=== PATIENT | female | born 1970 | race Caucasian/White ===

== ENCOUNTER 2017-06-12 19:13 | Inpatient (IN) ==
[2017-06-12] MEDS ORDERED: SODIUM CHLORIDE 0.9% 1,000 ML IV STA (23:31)
[2017-06-12] MEDS ORDERED: METOCLOPRAMIDE 10 MG/2 ML VIAL IV STA (23:32)
[2017-06-12] MEDS ORDERED: METOCLOPRAMIDE 10 MG/2 ML VIAL ONE (23:43)
[2017-06-12 23:50] LABS: Basophils % 0.4 % (0.0-0.8); Eosinophils # 0.2 10*3/uL (0.0-0.87); Eosinophils % 2.2 % (0.00-10.9); Hematocrit 43.6 VOL% (35.7-47.0); Hemoglobin 15.2 GM/DL (12.0-16.0); Immature Granulocytes % 0.3 %; Immature Granulocytes Absolute 0.03 #; Lymphocytes # 3.8 10*3/uL (1.4-4.0); Lymphocytes % 40.1 % (21.3-54.2); Mean Corpuscular HGB Conc 34.9 GM/DL (32-36); Mean Corpuscular Hemoglobin 34 PG (27-34); Mean Corpuscular Volume 97.3 FL (87-102); Mean Platelet Volume 10.6 FL (9.6-12.0); Monocytes # 0.6 10*3/uL (0.11-0.8); Monocytes % 6.7 % (1.7-12.7); Neutrophils # 4.8 10*3/uL (1.4-7.4); Neutrophils % 50.3 % (38.7-73.9); Platelet Count 234 T/CUMM (130-400); Red Blood Count 4.48 MC/CUMM (3.8-5.5); Red Cell Distribution Width 12.4 % (9.3-17.3); White Blood Count 9.6 T/CUMM (4-12)
[2017-06-12 23:55] LABS: Amorphous Crystals,Urine Many /HPF (Few); Apearance,Urine CLOUDY (Clear); Bacteria,Urine Occasional /HPF (Few); Bilirubin,Urine Negative (Negative); Blood, Urine Negative (Negative); Glucose,Urine (UA) Negative (Negative); Ketones,Urine Negative (Negative); Nitrite,Urine Negative (Negative); Protein,Urine Negative; Squamous Epithelial Cell,Urine Occasional /HPF (0-10); Urine Color Yellow (Yellow); Urine Specific Gravity 1.012 (1.001-1.035); Urine Urobilinogen < 2.0 EU/DL (0.2-1.0)
[2017-06-12 23:56] LABS: Alanine Aminotransferase 23 U/L (13-56); Albumin 3.5 G/DL (3.4-5.0); Alkaline Phosphatase 75 U/L (45-117); Amylase 49 U/L (25-115); Aspartate Amino Transferase 12 U/L (0-37); Blood Urea Nitrogen 10 MG/DL (7-18); Calcium 8.6 MG/DL (8.5-10.1); Glucose 108 MG/DL (74-106); Osmolality,Calculated 278.4 MOS/KG (273-304); Potassium 3.6 MMOL/L (3.5-5.1); Sodium 140 MMOL/L (136-145)
[2017-06-12 23:57] LABS: Partial Thromboplastin Time 33.4 SECS (0-40)
[2017-06-13 00:02] LABS: Barbiturates Screen,Urine Negative (Negative); Benzodiazepines Screen,Urine Negative (Negative); Cannabinoid Screen,Urine Negative (Negative); Opiate Screen,Urine Positive (Negative); Phencyclidine Screen,Urine Negative (Negative)
--- NOTE | 2017-06-13 01:46 | Emergency Department Note ---
Arrival - Arrival Chief Complaint: Abdominal / Flank Pain Stated Complaint: severe abd pain, unable to eat or drink ED Nursing Triage Note: C/O Generalized abd pain/constipation. Onset "years". Pt states that she has a problem with chronic constipation- pt reports that she is taking linzess without relief. Pt also takes pain meds daily for chronic pain. No active vomiting noted. Pt reports weight loss since her birthday in [birth year]. Last taken pain meds 3 hours ago. Mode of Arrival: Ambulatory Limitations: No Limitations Source: Patient Time Seen by Provider: 06/12/17 21:22 - History of Present Illness HPI Narrative: The patient complains of generalized abdominal pain for "months or years." She has has a problem with chronic constipation and takes opiates regularly for chronic pain. She is on Linzess but has had no relief. States she has been unable to eat because of abdominal pain and has had a 40 pound weight loss since November. She has some nausea but has vomiting only when she has a bowel movement. Her last bowel movement was 1 week ago. She denies any fever, dysuria or other symptoms. She has no history of pancreatitis but does have a history of some kind of "liver problem." She denies any history of alcohol use. She has a surgical history of tubal ligation, cholecystectomy, hysterectomy and some type of hernia. She states her current pain feels just like her pain did before she had her gallbladder removed. Date of Last Menstrual Period: Hysterectomy Allergies/Adverse Reactions: Allergies Allergy/AdvReac Type Severity Reaction Status Date / Time metronidazole [From Flagyl] Allergy Vomiting Verified 07/02/15 13:00 nitrofurantoin Allergy Vomiting Verified 01/31/15 07:17 [From Macrobid] phenazopyridine Allergy RASH Verified 07/02/15 13:00 [From Pyridium] pseudoephedrine Allergy Hypotension Verified 07/02/15 13:00 sumatriptan [From Imitrex] Allergy Chest Pain Verified 07/02/15 13:00 venom-honey bee Allergy ANAPHYLAXIS Verified 07/02/15 13:00 [bee venom (honey bee)] eletriptan [From Relpax] AdvReac Palpitation Verified 06/12/17 20:11 s NSAIDS (Non-Steroidal AdvReac Unknown/Unable Verified 07/02/15 13:00 Anti-Inflamma to obtain Home Medications: Home Medications Medication Instructions Recorded Confirmed Type Ondansetron Tab [Zofran Tab] 4 mg PO Q8HR 02/07/15 06/12/17 History Pantoprazole Tab [Protonix Tab] 40 mg PO BID 02/07/15 06/12/17 History Cetirizine Tab [ZyrTEC TAB] 10 mg PO DAILY 07/02/15 06/12/17 History Diazepam Tab [Valium Tab] 5 mg PO BID 07/02/15 06/12/17 History Gabapentin Cap/Tab [Neurontin 800 mg PO BEDTIME 07/02/15 06/12/17 History Cap/Tab] Tiotropium Inhalation [Spiriva 18 mcg INH DAILY 07/02/15 06/12/17 History Handihaler] lamoTRIgine [Lamictal Xr] 200 mg PO BEDTIME 07/02/15 06/12/17 History Budesonide/Formoterol 80-4.5 2 puff INH BID 06/12/17 06/12/17 History [Symbicort 80-4.5] Linaclotide [Linzess] 145 mcg PO AC BREAKFAST 06/12/17 06/12/17 History Morphine ER Tab [Ms Contin] 15 mg PO BID 06/12/17 06/12/17 History Oxycodone HCl 15 mg PO TID 06/12/17 06/12/17 History Pramipexole [Mirapex] 1 mg PO BEDTIME 06/12/17 06/12/17 History Trazodone HCl 50 mg PO BEDTIME 06/12/17 06/12/17 History Review of System - Review of System 12 point system: reviewed and no additional remarkable complaints except as stated - Review of System Constitutional: Present: weight loss. Absent: fever Head/Ears/Nose/Throat: Absent: nasal drainage, sore throat Respiratory: Absent: cough Cardiovascular: Absent: chest pain Gastrointestinal: Present: abdominal pain, nausea, vomiting, constipation. Absent: diarrhea Genitourinary female: Absent: dysuria Medical,Surgical,& Family Hx - Medical History Psychological: History of: Anxiety Disorders, Bipolar Disorder Respiratory: History of: COPD Gastrointestinal: History of: GI Problems (IBS) Musculoskeletal: History of: Back/Neck Problems (chronic back pain) Hematology: History of: Bleeding Problems (VWD) - Surgical History Abdominal Surgeries: Surgical HX of: Cholecystectomy (01/2014), Colonoscopy (2014) Reproductive Surgeries: Surgical HX of;: Hysterectomy (2010), Tubal Ligation - Family History Family History: noncontributory - Social History Smoking Status: Current every day smoker Frequency of Alcohol Use: None Type of Drug Use: None Exam Physical Examination: GENERAL: Alert. No acute distress. HEENT: Normocephalic and atraumatic. There is no nasal drainage. No pharyngeal erythema or exudate. NECK: Normal inspection. Supple. No lymphadenopathy or meningismus. LUNGS: No respiratory distress. Clear to auscultation bilaterally, no wheezes, rales or rhonchi. HEART: Regular rate and rhythm. ABDOMEN: Soft, nondistended with normal bowel sounds. Mild diffuse tenderness without guarding or rebound. BACK: Normal inspection. SKIN: Color normal. Warm and dry. EXTREMITIES: Nontender. Normal range of motion. No pedal edema. NEUROLOGICAL/PSYCHIATRIC: Alert and oriented -3 with normal mood and affect. Cranial nerves normal. No motor or sensory deficit. Vital Signs: Vital Signs Temperature 97.9 F 06/13/17 07:39 Pulse Rate 71 06/13/17 08:19 Respiratory Rate 16 06/13/17 08:19 Blood Pressure 85/48 06/13/17 07:39 O2 Sat by Pulse Oximetry 97 06/13/17 07:40 Course - Reevaluation(s) Reevaluation #1: At one point the patient's blood pressure dropped into the 60's over 40's. It is not clear what could be causing this but she has now gotten 2 liters of NS and her pressure is back up to 80's over 60's. No dizziness or lightheadedness. Her only complaint remains abdominal pain. The patient was discussed with Dr. Oro and I am transferring care to him now at shift change. CT of the abdomen is still pending. Time: 02:45 Results - Labs CBC & BMP: 06/12/17 21:00 06/13/17 05:49 Lab Results: I have reviewed the patients labs Labs: Laboratory Tests 06/12/17 06/12/17 06/12/17 21:00 21:00 21:00 INR Total Bilirubin 0.70 AST 12 ALT 23 Alkaline Phosphatase 75 Amylase 49 Lipase 258.0 Urine Leukocytes Negative Urine Bacteria Occasional Urine Opiates Screen Positive H Serum Alcohol < 15 L 06/12/17 21:00 INR 1.0 Total Bilirubin AST ALT Alkaline Phosphatase Amylase Lipase Urine Leukocytes Urine Bacteria Urine Opiates Screen Serum Alcohol Disposition Clinical Impression: Hypotension, Abdominal pain, Chronic pain syndrome, Opioid dependence Disposition: Still a Patient Condition: Stable
[2017-06-13] MEDS ORDERED: SODIUM CHLORIDE 0.9% 2,000 ML IV STA (02:39)
[2017-06-13] MEDS ORDERED: ZALEPLON 5 MG CAPSULE PO PRN (03:12)
[2017-06-13] MEDS ORDERED: MORPHINE 2 MG/1 ML SYRINGE IV PRN (03:12)
[2017-06-13] MEDS ORDERED: ACETAMINOPHEN 325 MG TABLET PO PRN (03:12)
[2017-06-13] MEDS ORDERED: PROMETHAZINE 25 MG/1 ML VIAL IM PRN (03:12)
--- NOTE | 2017-06-13 03:17 | Hospitalist History & Physical ---
<Cate Ogden - Last Filed: 06/13/17 06:48> Assessment and Plan - Time spent with patient Time spent with patient: Greater than 30 minutes (1) Abdominal pain Status: Acute Assessment and plan: CT was negative for any acute findings. Significant amounts of stool noted. Add Reglan IV and enema. Current Visit: Yes Qualifiers: Abdominal location: generalized Qualified Code(s): R10.84 - Generalized abdominal pain (2) Hypotension Status: Acute Current Visit: Yes Qualifiers: Hypotension type: unspecified hypotension type Qualified Code(s): I95.9 - Hypotension, unspecified (3) Chronic pain syndrome Status: Chronic Current Visit: Yes History of Present Illness History of present illness: Ms. Daley is a 46 year old female who presented to the ED with complaints of worsening abdominal pain over the last 4 days. In the ED, she was also found to be hypotensive with SBPs in the 80s, even after 2 boluses of fluid. However, she has been asymptomatic so far. She states that her abdominal pain and trouble with bowel movements started long before her chronic use of pain medications. She reports that use of pain medications to treat chronic back, neck and knee pain began about 1 year ago but abdominal problems began about 3- 4 years ago. Her pain is generalized, rated as 8/10 and is sharp and stabbing in nature. Pain is worsened by any oral intake. She reports that her pain is continuous with intermittent episodes of worsening. Ms. Daley reports that she only has bowel movements every 1-2 weeks and these bowel movements only occur when she gets nauseated and begins to vomit. Her last bowel movement was about 1 week ago, was "massive" in quantity and soft and induced by vomiting. Generally, Ms. Daley reports that she never feels the urge to have a bowel movement, regardless of fiber intake. She feels that her Linzess is too harsh for her and her doctor recently reduced her dosage. She reports that she is only able to eat a couple of bites of food before onset of pain. Furthermore, she reports unintentional weight loss of 42 lbs since November 2016 with her weight in November reported as 165 and her weight today reported as 123. Ms. Daley's PCP is at the [facility] and she has also been under the care of AGUSTIN Dinh in [place]. She reports having an EGD and colonoscopy here 2 years ago with a diagnosis of acid reflux and mastocytic enterocolitis. She also has a past medical history significant for migraines; Von Willebrand Disease; COPD; Acid reflux; Hiatal hernia; Bipolar II Disorder; Restless Leg Syndrome; and chronic back, neck, and left knee pain. She has a past surgical history of hysterectomy, left knee surgery, bladder sling placement, and tubal ligation. Home Medications Medication Instructions Recorded Confirmed Type Ondansetron Tab [Zofran Tab] 4 mg PO Q8HR 02/07/15 06/12/17 History Pantoprazole Tab [Protonix Tab] 40 mg PO BID 02/07/15 06/12/17 History Cetirizine Tab [ZyrTEC TAB] 10 mg PO DAILY 07/02/15 06/12/17 History Diazepam Tab [Valium Tab] 5 mg PO BID 07/02/15 06/12/17 History Gabapentin Cap/Tab [Neurontin 800 mg PO BEDTIME 07/02/15 06/12/17 History Cap/Tab] Tiotropium Inhalation [Spiriva 18 mcg INH DAILY 07/02/15 06/12/17 History Handihaler] lamoTRIgine [Lamictal Xr] 200 mg PO BEDTIME 07/02/15 06/12/17 History Budesonide/Formoterol 80-4.5 2 puff INH BID 06/12/17 06/12/17 History [Symbicort 80-4.5] Linaclotide [Linzess] 145 mcg PO AC BREAKFAST 06/12/17 06/12/17 History Morphine ER Tab [Ms Contin] 15 mg PO BID 06/12/17 06/12/17 History Oxycodone HCl 15 mg PO TID 06/12/17 06/12/17 History Pramipexole [Mirapex] 1 mg PO BEDTIME 06/12/17 06/12/17 History Trazodone HCl 50 mg PO BEDTIME 06/12/17 06/12/17 History Allergies Allergy/AdvReac Type Severity Reaction Status Date / Time metronidazole [From Flagyl] Allergy Vomiting Verified 07/02/15 13:00 nitrofurantoin Allergy Vomiting Verified 01/31/15 07:17 [From Macrobid] phenazopyridine Allergy RASH Verified 07/02/15 13:00 [From Pyridium] pseudoephedrine Allergy Hypotension Verified 07/02/15 13:00 sumatriptan [From Imitrex] Allergy Chest Pain Verified 07/02/15 13:00 venom-honey bee Allergy ANAPHYLAXIS Verified 07/02/15 13:00 [bee venom (honey bee)] eletriptan [From Relpax] AdvReac Palpitation Verified 06/12/17 20:11 s NSAIDS (Non-Steroidal AdvReac Unknown/Unable Verified 07/02/15 13:00 Anti-Inflamma to obtain Medical,Surgical,& Family Hx - Medical History Psychological: History of: Anxiety Disorders Neurology: History of: Migraine Gastrointestinal: History of: GERD Musculoskeletal: History of: Musculoskeletal Problems (Restless leg syndrome) - Surgical History Abdominal Surgeries: Surgical HX of: EGD - Family History Family History: Reports;: Family Cancer (Mother: breast and cervical CA; Maternal grandmother: breast CA), Family Diabetes (maternal grandfather), Family Hypertension (maternal grandmother) - Social History Have you smoked in the last 12 months: Yes (Reports 10/29 ppd) Marital Status: Lives With:: Significant Other Functional capacity: independent ambulation - Constitutional Constitutional: Present: weight loss. Absent: fever(s), headache(s) - EENT Eyes: Absent: blurry vision, diplopia Ears: Absent: ear discharge, ear pain Nose, mouth and throat: Absent: dysphagia, nasal congestion, sore throat - Cardiovascular Cardiovascular: Absent: chest pain at rest, dyspnea, orthopnea, palpitations - Respiratory Respiratory: Present: wheezing. Absent: dyspnea, hemoptysis - Gastrointestinal Gastrointestinal: Present: abdominal pain, constipation, early satiety, heartburn, nausea, vomiting - Genitourinary Genitourinary: Absent: dysuria, urinary frequency - Musculoskeletal Musculoskeletal: Present: arthralgias, back pain - Neurological Neurological: Absent: dizziness, paresthesias - Psychiatric Psychiatric: Absent: homicidal ideation, suicidal ideation - Endocrine Endocrine: Absent: polydipsia, polyphagia, polyuria - Hematologic/Lymphatic Hematologic/Lymphatic: Absent: easy bleeding, easy bruising Exam - Constitutional Vitals: Period Temp Pulse Resp BP Sys/Cruz Pulse Ox Last 24 Hr 98.7 F-98.7 F 64-92 16-20 66-95/35-65 95-100 Exam: Constitutional System: No distress. No tremulousness. Head: Normocephalic, atraumatic. Ears, Nose and Throat System: No pain or tenderness. No epistaxis or discharge Eyes System: Pupils equal, round, and reactive. Extraocular muscles intact. Neck: Supple, without adenopathy, No jugular venous distention. No thyromegaly, neck mass, or prior surgery apparent. Respiratory System: Bilateral wheezing noted on auscultation. Cardiovascular System: Heart with regular rate and rhythm. No murmur. GI System: Abdomen soft, generalized tenderness noted with palpation. Hyperactive bowel sounds present. Musculoskeletal System: limbs with no pedal edema. Full distal pulses. Normal capillary refill. Neurological System: No discernable sensory deficit. No aphasia Psychiatric System: Conversation is rational Results - Labs CBC & BMP: 06/12/17 21:00 06/12/17 21:00 Lab Results: I have reviewed the past 24 hour labs <Brendan Bejarano - Last Filed: 06/13/17 07:23> Assessment and Plan (1) Hypotension Status: Acute Assessment and plan: Follow-up lactic acid. Patient received 4 L of IV fluids in the emergency department. She continues to have blood pressures in the 80s and 90s systolic. She is not tachycardic. Her baseline is unknown. Admit to the hospitalist service with continued IV fluids and blood pressure monitoring to a monitored bed. Further recommendations will depend on her response to therapy. Her abdominal pain seems to be an acute on chronic process. A GI consult has been placed. Current Visit: Yes Qualifiers: Hypotension type: unspecified hypotension type Qualified Code(s): I95.9 - Hypotension, unspecified (2) Abdominal pain Status: Acute Assessment and plan: This is an acute on chronic process. The patient is on multiple medications for chronic pain as well as chronic constipation including opioid induced constipation. Consult gastroenterology. Follow-up final CT scan readings. No evidence of obstruction or ileus at this time. Current Visit: Yes Qualifiers: Abdominal location: generalized Qualified Code(s): R10.84 - Generalized abdominal pain (3) Chronic pain syndrome Status: Chronic Assessment and plan: Continue home medications. Current Visit: Yes History of Present Illness Chief complaint: Abdominal pain History of present illness: Ms. Daley is a 46 year old female with chronic pain the presents to the emergency department today with worsening abdominal pain and weight loss. She was found to be hypotensive in the emergency department. She was referred to the hospital service for admission for further workup and evaluation. She was noted to have some constipation without obstruction. She has received IV fluid hydration in the emergency department. I have personally seen and examined this patient today. I agree with the below note as prepared by the advanced practice provider. I agree with the assessment and plan. I am admitting her to the hospital and will consult gastroenterology as well as put her on a bowel regimen to improve her constipation. All medications were reviewed and reconciled. The patient is a full code. Medical,Surgical,& Family Hx - Medical History Psychological: History of: Anxiety Disorders, Bipolar Disorder Respiratory: History of: COPD Gastrointestinal: History of: GI Problems (IBS) Musculoskeletal: History of: Back/Neck Problems (chronic back pain) Hematology: History of: Bleeding Problems (VWD) - Surgical History Abdominal Surgeries: Surgical HX of: Cholecystectomy (01/2014), Colonoscopy (2014) Reproductive Surgeries: Surgical HX of;: Hysterectomy (2010), Tubal Ligation - Social History Smoking Status: Current every day smoker Frequency of Alcohol Use: None Type of Drug Use: None 12 point system: reviewed and no additional remarkable complaints except as stated Exam - Constitutional Vitals: Period Temp Pulse Resp BP Sys/Cruz Pulse Ox Last 24 Hr 98.7 F-98.7 F 72-92 16-20 84-95/55-65 97-99 Results - Labs CBC & BMP: 06/12/17 21:00 06/13/17 05:49 Lab Results: I have reviewed the past 24 hour labs - Diagnostic Findings Procedure: CT Abdomen and Pelvis: image reviewed by me, report reviewed by me
[2017-06-13] MEDS ORDERED: ENOXAPARIN 40 MG/0.4 ML SYRINGE SUBCUT SCH (03:30)
[2017-06-13] MEDS: LACTULOSE 20 GM/30 ML UDCUP PO SCH ×3 (06:23→11:50)
[2017-06-13] MEDS: METOCLOPRAMIDE 10 MG/2 ML VIAL IV SCH ×2 (06:24→11:50)
[2017-06-13] MEDS: SODIUM CHLORIDE 0.9% 1,000 ML IV SCH ×3 (06:24→23:10)
[2017-06-13] MEDS: ONDANSETRON 4 MG TABLET PO SCH ×3 (06:25→21:38)
[2017-06-13 06:52] LABS: Calcium 7.6 MG/DL (8.5-10.1); Magnesium 2.1 MG/DL (1.8-2.4); Osmolality,Calculated 281.8 MOS/KG (273-304); Potassium 3.9 MMOL/L (3.5-5.1); Thyroid Stimulating Hormone 1.45 uIU/ml (0.358-3.74)
[2017-06-13] MEDS: IPRATROPIUM 500 MCG/2.5 ML NEB RESP TX SCH (07:40)
--- NOTE | 2017-06-13 08:13 | CT Report ---
CT abdomen pelvis w con Indication: Abdominal pain with vomiting. CT ABDOMEN AND PELVIS WITH CONTRAST DLP: 392 mGy*cm. One or more of the following dose reduction techniques was used: Automated exposure control, adjustment of the mA and/or kV according the patient size, or use of iterative reconstruction techniques. Comparison: 12/17/2014 Technique: Axial CT images of the abdomen and pelvis were obtained with IV contrast; Omnipaque 350, 100 cc. Oral contrast was administered. Abdomen: Normal heart size. Lung bases are clear except for diffuse mild interstitial prominence in minimal peribronchial thickening. Is the patient a smoker? Benign-appearing 13 mm liver cyst at the dome is present. Liver is otherwise unremarkable. Gallbladder is absent. Mild prominence of the extrahepatic biliary collecting system is anticipated. This is stable. Spleen, pancreas, adrenal glands and left kidney are unremarkable. There is a 2 mm nonobstructing right kidney stone. Scattered air-fluid levels are present within central small bowel which is not dilated. Normal amount of stool and gas is shown the colon. Normal-sized appendix without inflammation. No mesenteric lymphadenopathy or inflammation. Pelvis: Urinary bladder and rectosigmoid colon are grossly unremarkable. Uterus is surgically absent. There is some subcutaneous scarring right mons pubis. Has the patient had prior hernia repair? This is unchanged. No recurrent hernia identified. No bone lesions. Impression: No acute intra-abdominal or pelvic pathology. Mild interstitial prominence of the lung bases and peribronchial thickening consistent with airways disease. Benign 13 mm liver cyst. Nonobstructing right kidney stone. Negative appendix. PROCEDURE INTERPRETED AT [facility] DEPARTMENT OF RADIOLOGY Final Report Signed by: Melchor Lancaster M.D.
[2017-06-13] MEDS ORDERED: oxyCODONE IR 5 MG TABLET PO SCH (09:00)
[2017-06-13] MEDS ORDERED: PANTOPRAZOLE 40 MG TABLET PO SCH (09:00)
[2017-06-13] MEDS ORDERED: CETIRIZINE 10 MG TABLET PO SCH (09:00)
[2017-06-13] MEDS ORDERED: BISACODYL 5 MG TABLET PO SCH (09:00)
[2017-06-13] MEDS ORDERED: DOCUSATE SODIUM 100 MG CAPSULE PO SCH (09:00)
[2017-06-13] MEDS ORDERED: MORPHINE ER 15 MG TABLET PO SCH (09:00)
[2017-06-13] MEDS: PANTOPRAZOLE 40 MG TABLET PO SCH ×2 (09:22→21:38)
[2017-06-13] MEDS: DIAZEPAM 5 MG TABLET PO SCH ×2 (09:22→21:38)
[2017-06-13] MEDS: BUDESONIDE/FORMOTEROL 80-4.5 INHALER 6.9 GM INH SCH ×2 (09:22→21:00)
[2017-06-13] MEDS: LINACLOTIDE 145 MCG CAPSULE PO SCH (10:38)
[2017-06-13] MEDS ORDERED: oxyCODONE IR 5 MG TABLET PO PRN (10:57)
--- NOTE | 2017-06-13 13:27 | Gastrointestinal Consult Note ---
Assessment and Plan (1) IBS (irritable colon syndrome) Status: Acute Assessment and plan: Patient appears to have irritable bowel syndrome with an exquisite sensitivity to certain laxatives i.e. Linzess. Presently she is being underdosed with one bowel movement every 1 week, we should be able to titrate up some MiraLAX in order to produce steady bowel movements on a daily basis or twice daily basis with a gradually increasing dose. Some of the hypomotility noted in the colon should be reversed as we discontinue the patient's narcotics. The purpose for this is twofold--not just to see if we can improve her colonic motility but also to decrease upper GI hypomotility so we can see if she has gastroparesis and perhaps reverse the nausea and vomiting that she is experiencing if this is all narcotic induced. Other drugs can be used for chronic opioid induced constipation such as Relistor and Movantik as other options down the road however decreasing the narcotics circumvents the need for these medications. We will need to keep an eye on the patient to see how she responds to discontinuation of these medications while observing for potential withdrawal symptoms and her response to the combination of 145 mg of Linzess in addition to MiraLAX 1 capful twice daily. Current Visit: Yes (2) Generalized abdominal pain Status: Acute Assessment and plan: Likely this is a manifestation of the above IBS type picture, especially given that the patient's pain is diffuse and not localized to one particular area. Typically patients feel better once they are emptied and this is not always the case in this particular patient. There is definitely some somatization going on here, this is unlikely to respond to narcotic therapy, as this is her main complaint when you try her off the narcotics to see if we can have a clean slate to treat her bowel and hypomotility issues considering the amount of weight that she is lost since November. This is going to have to take priority over her orthopedic complaints at least in the short-term. I have explained this to the patient who promises to try and comply. We need to see with a gastric emptying study shows tomorrow and see if she gets improvement in her symptoms after the narcotics end. Current Visit: Yes (3) Abnormal weight loss Status: Acute Current Visit: Yes (4) Nausea & vomiting Status: Acute Assessment and plan: Possibly due to upper GI hypomotility as her acidity in her stomach is being controlled with proton pump inhibitors. She has just completed a Menjivar pH monitoring study which I suspect would be normal unless she was vomiting her PPIs. Will observe her on Zofran, promethazine, and Valium to help control her anxiety (without cutting back her motility). Current Visit: Yes History of Present Illness Chief complaint: Constipation predominant IBS, nausea/vomiting/abnormal weight loss History of present illness: Ms. Daley is a 46 year old female who had previously been seen by my partner Dr. Robertson back in 2014 when she presented with similar symptoms of epigastric pain nausea, vomiting, and diarrhea predominant irritation of her colon. She underwent upper endoscopy on 12/12/14 which showed a normal- appearing EGD with a slight dilation of the duodenum but no apparent irritation , she also underwent a colonoscopy on 12/14/14 which appeared completely normal but demonstrated a mastocytic colitis that was subsequently treated with a combination of Zyrtec and Zantac. The patient has been following with the OR clinic at [place] as her primary and has been sent to see Dr. Amaya of [facility] in [place]. He is her primary extension service specialist. It is my understanding that she just finished a Menjivar pH monitoring study with his office on , 3 days ago. She states that she has had a significant weight loss which has been unintentional dropping from 165 pounds in November 2016 down to her present weight of 123 pounds due to lack of p.o. intake. She states that she feels this is due to her GI hypomotility inducing a great deal of nausea vomiting and anorexia because she cannot pass stool. This being said she notes that if she takes a full dose of Linzess (290 mg) that she goes to the bathroom so much that she becomes dehydrated. When the medication was cut in half this effect went away to the point where she was only able to go to the bathroom once every 7-10 days on the 145 mg per day. Although she has tried a number of laxatives including stool softeners, MiraLAX, and milk of magnesia, these were not added to her current dose of Linzess to see if titration to effect could be achieved. We also discussed potentially discontinuing her narcotics to see where her baseline would end up considering that her problem is not just in her colon rather than her entire GI tract. She carries multiple diagnoses including: Migraine headaches, von Willebrand's disease, COPD, acid reflux, hiatal hernia, bipolar disorder, restless leg syndrome, and orthopedic pain including back neck and left knee. She is already had her gallbladder removed back on 05/19/14 with a diagnosis of chronic cholecystitis. She has some mild right upper quadrant pain but a more diffuse pain throughout the rest of the abdomen. We need to see what her upper GI and bowel action off of narcotics entirely. We can use Phenergan to help her tolerate the scrambled leg versus oatmeal bolus but we definitely need to see her gastric emptying off these narcotics and off of Reglan for considering a prescription of the latter. CT scan of the abdomen failed to show any abnormalities in the GI tract although some scarring at the lung bases is noted. Home Medications Medication Instructions Recorded Confirmed Type Ondansetron Tab [Zofran Tab] 4 mg PO Q8HR 02/07/15 06/12/17 History Pantoprazole Tab [Protonix Tab] 40 mg PO BID 02/07/15 06/12/17 History Cetirizine Tab [ZyrTEC TAB] 10 mg PO DAILY 07/02/15 06/12/17 History Diazepam Tab [Valium Tab] 5 mg PO BID 07/02/15 06/12/17 History Gabapentin Cap/Tab [Neurontin 800 mg PO BEDTIME 07/02/15 06/12/17 History Cap/Tab] Tiotropium Inhalation [Spiriva 18 mcg INH DAILY 07/02/15 06/12/17 History Handihaler] lamoTRIgine [Lamictal Xr] 200 mg PO BEDTIME 07/02/15 06/12/17 History Budesonide/Formoterol 80-4.5 2 puff INH BID 06/12/17 06/12/17 History [Symbicort 80-4.5] Linaclotide [Linzess] 145 mcg PO AC BREAKFAST 06/12/17 06/12/17 History Morphine ER Tab [Ms Contin] 15 mg PO BID 06/12/17 06/12/17 History Oxycodone HCl 15 mg PO TID 06/12/17 06/12/17 History Pramipexole [Mirapex] 1 mg PO BEDTIME 06/12/17 06/12/17 History Trazodone HCl 50 mg PO BEDTIME 06/12/17 06/12/17 History Allergies Allergy/AdvReac Type Severity Reaction Status Date / Time metronidazole [From Flagyl] Allergy Vomiting Verified 07/02/15 13:00 nitrofurantoin Allergy Vomiting Verified 01/31/15 07:17 [From Macrobid] phenazopyridine Allergy RASH Verified 07/02/15 13:00 [From Pyridium] pseudoephedrine Allergy Hypotension Verified 07/02/15 13:00 sumatriptan [From Imitrex] Allergy Chest Pain Verified 07/02/15 13:00 venom-honey bee Allergy ANAPHYLAXIS Verified 07/02/15 13:00 [bee venom (honey bee)] eletriptan [From Relpax] AdvReac Palpitation Verified 06/12/17 20:11 s NSAIDS (Non-Steroidal AdvReac Unknown/Unable Verified 07/02/15 13:00 Anti-Inflamma to obtain Medical,Surgical,& Family Hx - Medical History Psychological: History of: Anxiety Disorders, Bipolar Disorder Neurology: History of: Migraine Respiratory: History of: COPD Gastrointestinal: History of: GERD, GI Problems (IBS) Musculoskeletal: History of: Back/Neck Problems (chronic back pain), Musculoskeletal Problems (Restless leg syndrome) Hematology: History of: Bleeding Problems (VWD) - Surgical History Abdominal Surgeries: Surgical HX of: Cholecystectomy (01/2014), Colonoscopy (2014), EGD Patient denies: Abdominal Surgery Comment Only: Hernia Repair (pt reports she has hitial hernia) Reproductive Surgeries: Surgical HX of;: Hysterectomy (2010), Tubal Ligation - Family History Family History: Reports;: Family Cancer (Mother: breast and cervical CA; Maternal grandmother: breast CA), Family Diabetes (maternal grandfather), Family Hypertension (maternal grandmother) - Social History Smoking Status: Current every day smoker Frequency of Alcohol Use: None Type of Drug Use: None Review of systems: Constitutional: Denies fever, chills, but positive for nausea, and vomiting Eyes: Denies dry eyes, and scleral icterus HENT: Admits to migraine headaches Cardiovascular: Denies acute chest pain and claudication Respiratory: Does complain of frequent shortness of breath, wheezing, difficulty breathing, and cough Gastrointestinal: As noted in the HPI Genitourinary: Denies dysuria and hematuria Neurologic: Denies vision loss, and loss of sensation Musculoskeletal: Denies joint swelling, but does have occasional joint stiffness, and muscular weakness Psychiatric: Admits to depression and jennifer symptoms consistent with her bipolar disorder Heme-Lymph: Denies easy bruising, lymph node enlargement or tenderness, night sweats, excessive bleeding Allergies-immunologic: Denies pruritus and rhinorrhea Exam - Constitutional Vitals: Period Temp Pulse Resp BP Sys/Cruz Pulse Ox Last 24 Hr 97.0 F-98.7 F 64-92 16-20 66-96/35-65 93-100 Exam: Constitutional: Well-developed, well-nourished, alert, and in no acute distress Head and face: Head: Normocephalic atraumatic Eyes: Conjunctiva without injection, no gross scleral icterus, pupils equal and round bilaterally Ears: Intact to conversation in both ears Nose: External appearance is normal, nares patent Mouth: Oral mucous membranes moist without erythema dentition noted to be without erosion Neck: Normal appearance, no masses or tenderness, trachea midline Thyroid: Gland midline and appropriate size for age Respiratory: Normal respiratory effort, clear to auscultation without wheezes, rhonchi or rales Cardiovascular: Regular rate and rhythm, normal S1, S2, the exam is without rubs, murmurs or gallops. Gastrointestinal: Mild diffuse tenderness to palpation, this might be a slight bit worse over the right upper quadrant, normal active bowel sounds, tone normal without rigidity or guarding, no masses present, no hepatomegaly, no spleen tip felt. Rectal exam showed good tone no external fissures or fistulas there is a large external hemorrhoid noted at 9:00. Lymphatic: Neck without adenopathy, axilla without lymphadenopathy present Musculoskeletal: Right and left lower extremities without evidence of edema Skin and subcutaneous tissue: No rashes or ulcerations noted, normal skin turgor, digits and nails without clubbing/cyanosis/deformities. Multiple tattoos are noted. Neurologic: The patient is grossly oriented to person place and time, cranial nerves show tongue movements are normal with normal tongue extrusion midline, light touch sensation is intact. Psychiatric: No hallucinations or delusions are present, does not appear depressed - Head Head exam: Present: normocephalic - Eye Eye exam: Present: EOMI Pupils: Present: TAMMIE - Respiratory Respiratory exam: Present: clear to auscultation bilaterally - Cardiovascular Cardiovascular exam: Present: regular rate and rhythm - GI/Abdominal GI/Abdominal exam: Present: normal bowel sounds, soft. Absent: distended, guarding, tenderness, rebound - Neurological Exam Neurological exam: Present: alert, oriented X3 - Psychiatric Psychiatric exam: Present: agitated, anxious - Skin Skin exam: Present: warm Results - Labs CBC & BMP: 06/12/17 21:00 06/13/17 05:49
[2017-06-13] MEDS: GABAPENTIN 400 MG CAPSULE PO SCH (21:38)
[2017-06-13] MEDS: PRAMIPEXOLE 1 MG TABLET PO SCH (21:38)
[2017-06-13] MEDS: traZODone 50 MG TABLET PO SCH (21:38)
[2017-06-13] MEDS: POLYETHYLENE GLYCOL POWDER 17 GM PACK PO SCH (23:10)
[2017-06-14] MEDS: SODIUM CHLORIDE 0.9% 1,000 ML IV SCH ×4 (00:24→21:50)
[2017-06-14] MEDS: ONDANSETRON 4 MG TABLET PO SCH ×3 (05:58→21:49)
[2017-06-14 06:12] LABS: Basophils % 0.4 % (0.0-0.8); Eosinophils # 0.2 10*3/uL (0.0-0.87); Hematocrit 38.8 VOL% (35.7-47.0); Hemoglobin 13.2 GM/DL (12.0-16.0); Immature Granulocytes % 0.1 %; Immature Granulocytes Absolute 0.01 #; Lymphocytes # 2.7 10*3/uL (1.4-4.0); Lymphocytes % 35.9 % (21.3-54.2); Mean Corpuscular Hemoglobin 34 PG (27-34); Mean Platelet Volume 10.1 FL (9.6-12.0); Monocytes # 0.6 10*3/uL (0.11-0.8); Monocytes % 7.7 % (1.7-12.7); Neutrophils # 3.9 10*3/uL (1.4-7.4); Neutrophils % 52.9 % (38.7-73.9); Platelet Count 199 T/CUMM (130-400); Red Blood Count 3.92 MC/CUMM (3.8-5.5); Red Cell Distribution Width 12.8 % (9.3-17.3); White Blood Count 7.4 T/CUMM (4-12)
[2017-06-14 06:43] LABS: Calcium 7.9 MG/DL (8.5-10.1); Magnesium 2.3 MG/DL (1.8-2.4); Osmolality,Calculated 288.4 MOS/KG (273-304); Potassium 3.8 MMOL/L (3.5-5.1)
[2017-06-14] MEDS: IPRATROPIUM 500 MCG/2.5 ML NEB RESP TX SCH (06:54)
[2017-06-14] MEDS: LINACLOTIDE 145 MCG CAPSULE PO SCH (09:21)
[2017-06-14] MEDS: BUDESONIDE/FORMOTEROL 80-4.5 INHALER 6.9 GM INH SCH ×2 (09:21→21:51)
[2017-06-14] MEDS: DIAZEPAM 5 MG TABLET PO SCH ×2 (09:21→21:50)
[2017-06-14] MEDS: PANTOPRAZOLE 40 MG TABLET PO SCH ×2 (09:21→21:49)
[2017-06-14] MEDS: POLYETHYLENE GLYCOL POWDER 17 GM PACK PO SCH (09:21)
[2017-06-14] MEDS ORDERED: DIHYDROERGOTAMINE 1 MG/ML AMP SUBCUT PRN ×2 (11:32→15:30)
--- NOTE | 2017-06-14 11:49 | Nuclear Medicine Report ---
NM gastric emptying study Indication: Nausea, vomiting, weight loss with normal EGD. GASTRIC EMPTYING NUCLEAR MEDICINE SCAN Technique: 500 ?Ci technetium 99 labeled sulfur colloid was given by mouth in solid food (scrambled egg sandwich). Time activity curves of the stomach with linear fit analysis was performed. Findings: Half-life 99 minutes by linear fit, 92 minutes by raw data. At 180 minutes, 90% emptying noted. Impression: Gastric emptying half-life of 92 to 99 minutes noted. This is upper limits of normal, but certainly not indicative of a significant gastroparesis. PROCEDURE INTERPRETED AT [facility] DEPARTMENT OF RADIOLOGY Final Report Signed by: Melchor Lancaster M.D.
--- NOTE | 2017-06-14 12:17 | Hospitalist Progress Note ---
Assessment and Plan (1) Hypotension Status: Acute Assessment and plan: Stable Asymptomatic Current Visit: Yes Qualifiers: Hypotension type: unspecified hypotension type Qualified Code(s): I95.9 - Hypotension, unspecified (2) Abdominal pain Status: Acute Assessment and plan: GI assisting CT A/P without acute process Gastric emptying study today Current Visit: Yes Qualifiers: Abdominal location: generalized Qualified Code(s): R10.84 - Generalized abdominal pain (3) Nausea & vomiting Status: Acute Assessment and plan: Improving Current Visit: Yes Hospitalist: Subjective Interval history: No acute events overnight. Patient reports the start of a migraine this morning. She also complains of her chronic back pain. Exam - Constitutional Vitals: Period Temp Pulse Resp BP Sys/Cruz Pulse Ox Last 24 Hr 96.6 F-98.4 F 67-78 14-20 82-110/58-60 93-100 General appearance: normal weight - Head Head exam: Present: normocephalic, atraumatic - Eye Eye exam: Present: EOMI Pupils: Present: TAMMIE - ENT ENT exam: Present: normal exam - Neck Neck exam: Present: normal inspection - Respiratory Respiratory exam: Present: clear to auscultation bilaterally. Absent: rhonchi, wheezes - Cardiovascular Cardiovascular exam: Present: regular rate and rhythm - GI/Abdominal GI/Abdominal exam: Present: normal bowel sounds, soft - Extremities Exam Extremities exam: Present: normal inspection - Back Exam Back exam: Present: normal inspection - Neurological Exam Neurological exam: Present: alert, oriented X3 - Psychiatric Psychiatric exam: Present: normal affect, normal mood - Skin Skin exam: Present: warm, intact Results - Labs CBC & BMP: 06/14/17 05:38 06/14/17 05:38
--- NOTE | 2017-06-14 13:33 | Gastrointestinal Progress Note ---
Assessment and Plan (1) IBS (irritable colon syndrome) Status: Acute Assessment and plan: Patient appears to have irritable bowel syndrome with an exquisite sensitivity to certain laxatives i.e. Linzess. Presently she is being underdosed with one bowel movement every 1 week, we should be able to titrate up some MiraLAX in order to produce steady bowel movements on a daily basis or twice daily basis with a gradually increasing dose. Some of the hypomotility noted in the colon should be reversed as we discontinue the patient's narcotics. The purpose for this is twofold--not just to see if we can improve her colonic motility but also to decrease upper GI hypomotility so we can see if she has gastroparesis and perhaps reverse the nausea and vomiting that she is experiencing if this is all narcotic induced. Other drugs can be used for chronic opioid induced constipation such as Relistor and Movantik as other options down the road however decreasing the narcotics circumvents the need for these medications. We will need to keep an eye on the patient to see how she responds to discontinuation of these medications while observing for potential withdrawal symptoms and her response to the combination of 145 mg of Linzess in addition to MiraLAX 1 capful twice daily. 06/14/17--The patient does have what sounds like 4-6 bowel movements per day while on the Linzess as well as the MiraLAX. We can likely discontinue the MiraLAX at this point and see if we can get her into about the 2-3 loose bowel movement per day range. I suspect this might get worse if she was back on the narcotics but as we are working her up at the present time this level of laxative use is not going to be required. I am going to order a small bowel follow-through to look and see if there is any areas of stricturing/narrowing/ fistula might be consistent with Crohn's. She seems to be doing superlatively well off of her narcotics. Current Visit: Yes (2) Generalized abdominal pain Status: Acute Assessment and plan: Likely this is a manifestation of the above IBS type picture, especially given that the patient's pain is diffuse and not localized to one particular area. Typically patients feel better once they are emptied and this is not always the case in this particular patient. There is definitely some somatization going on here, this is unlikely to respond to narcotic therapy, as this is her main complaint when you try her off the narcotics to see if we can have a clean slate to treat her bowel and hypomotility issues considering the amount of weight that she is lost since November. This is going to have to take priority over her orthopedic complaints at least in the short-term. I have explained this to the patient who promises to try and comply. We need to see with a gastric emptying study shows tomorrow and see if she gets improvement in her symptoms after the narcotics end. 06/14/17--the patient appears to be doing fairly well on just the Linzess in addition to some MiraLAX for her underlying "constipation". In truth she likely does not need the MiraLAX as she is going to the bathroom approximately 6 -8 times per day without this. The Linzess may be able to handle her IBS alone at 145 mg per day. Will discontinue the MiraLAX at this point and observe. I am going to ask for small bowel follow-through to look for evidence of narrowing fistulas that might be consistent with Crohn's disease. We will observe the patient on a solid diet. N.p.o. after midnight for the above small bowel follow-through. Current Visit: Yes (3) Abnormal weight loss Status: Acute Current Visit: Yes (4) Nausea & vomiting Status: Acute Assessment and plan: Possibly due to upper GI hypomotility as her acidity in her stomach is being controlled with proton pump inhibitors. She has just completed a Menjivar pH monitoring study which I suspect would be normal unless she was vomiting her PPIs. Will observe her on Zofran, promethazine, and Valium to help control her anxiety (without cutting back her motility). 06/14/17--The patient's T1 half emptying time for gastric emptying study was noted to be 99 minutes which is upper ends of normal, she might benefit from low -dose Reglan if she develops worsening nausea and vomiting however would like to avoid using excessive amounts of medication this patient, we will not start anything for the present time as long she is not having nausea. Most of her complaints stem from the abdominal pain and bloating that she feels with intake of food. Again I suspect that her IBS will be well controlled with the Linzess 145 mg per day and avoidance of narcotics as her mainstay treatments. She is on Protonix 40 mg twice daily which should be adequately suppressing her stomach acid. Continue feeding a low-fat diet. Current Visit: Yes Gastroenterology - PN: Subj Interval history: Overall the patient seems to be having slightly better today than yesterday. They were forwarded bowel movements documented yesterday after we started keeping count and then another 3 bowel movements as per the patient although only one is documented in the chart. The patient has a penchant for hyperbole and states that her bowel movements were about 100 times yesterday but upon reflection thinks this was actually about 6. I am trying to get her to keep an accurate count with a bedside chart to help her keep more realistic expectation for her progress. Given that the stools are still quite loose and she has no evidence of gastroparesis I am going to go ahead and discontinue the MiraLAX at this point. Exam (Progress Note) - Constitutional Vitals: Period Temp Pulse Resp BP Sys/Cruz Pulse Ox Last 24 Hr 96.6 F-98.4 F 67-85 14-20 82-117/58-64 93-100 General appearance: no acute distress - Head Head exam: Present: normocephalic, atraumatic - Eye Eye exam: Present: EOMI Pupils: Present: TAMMIE - Respiratory Respiratory exam: Present: clear to auscultation bilaterally. Absent: rhonchi, stridor, wheezes - Cardiovascular Cardiovascular exam: Present: regular rate and rhythm - GI/Abdominal GI/Abdominal exam: Present: normal bowel sounds, tenderness (Bilateral lower quadrant/periumbilical tenderness to palpation), soft. Absent: distended, guarding, rebound - Neurological Exam Neurological exam: Present: alert, oriented X3, CN II-XII intact. Absent: motor sensory deficit - Psychiatric Psychiatric exam: Present: normal affect, normal mood - Skin Skin exam: Present: warm Results - Labs CBC & BMP: 06/14/17 05:38 06/14/17 05:38
[2017-06-14] MEDS: LAMOTRIGINE 200 MG PO SCH ×2 (15:45→21:50)
[2017-06-14] MEDS: ONDANSETRON 4 MG/2 ML VIAL IV PRN (15:46)
[2017-06-14] MEDS ORDERED: ONDANSETRON 4 MG/2 ML VIAL IV ONE (16:33)
[2017-06-14] MEDS: traZODone 50 MG TABLET PO SCH (21:49)
[2017-06-14] MEDS: PRAMIPEXOLE 1 MG TABLET PO SCH (21:49)
[2017-06-14] MEDS: GABAPENTIN 400 MG CAPSULE PO SCH (21:50)
[2017-06-15] MEDS: ONDANSETRON 4 MG TABLET PO SCH ×3 (06:17→21:30)
[2017-06-15] MEDS: SODIUM CHLORIDE 0.9% 1,000 ML IV SCH ×2 (06:17→13:43)
[2017-06-15 06:45] LABS: Magnesium 2.2 MG/DL (1.8-2.4); Osmolality,Calculated 287.6 MOS/KG (273-304); Potassium 3.8 MMOL/L (3.5-5.1)
[2017-06-15] MEDS: IPRATROPIUM 500 MCG/2.5 ML NEB RESP TX SCH ×3 (07:08→17:47)
[2017-06-15] MEDS: LINACLOTIDE 145 MCG CAPSULE PO SCH (07:37)
[2017-06-15] MEDS: DIAZEPAM 5 MG TABLET PO SCH ×3 (08:06→21:30)
[2017-06-15] MEDS: PANTOPRAZOLE 40 MG TABLET PO SCH ×2 (08:06→21:31)
[2017-06-15] MEDS: BUDESONIDE/FORMOTEROL 80-4.5 INHALER 6.9 GM INH SCH ×2 (08:47→21:31)
[2017-06-15] MEDS: ACETAMINOPHEN 325 MG TABLET PO PRN ×2 (09:23→18:31)
--- NOTE | 2017-06-15 14:03 | Fluoroscopy Report ---
Small bowel series. Indication: Abnormal weight loss. Possible inflammatory bowel disease. A event marketing manager radiograph was obtained which demonstrates a normal bowel gas pattern, and surgical clips in the right upper quadrant. Fluoroscopy time, 19 seconds. The patient was able to swallow the barium and water mixture without difficulty. By 2 hours, contrast material had reached the colon. The gastric contour is grossly normal. The duodenal C-loop is normally located. The caliber of the small intestine is normal. No areas of persistent narrowing or dilatation noted. The fold pattern is appropriate. The terminal ileum presents a normal appearance. Impression: No abnormality is seen. PROCEDURE INTERPRETED AT [facility] DEPARTMENT OF RADIOLOGY Final Report Signed by: Dr. Smiley Venegas
[2017-06-15] MEDS: ONDANSETRON 4 MG/2 ML VIAL IV PRN (16:29)
--- NOTE | 2017-06-15 16:32 | Hospitalist Progress Note ---
Assessment and Plan (1) Hypotension Status: Acute Assessment and plan: Slowly improving Asymptomatic Continue IV fluids Will check am cortisol orthostatic vitals Current Visit: Yes Qualifiers: Hypotension type: unspecified hypotension type Qualified Code(s): I95.9 - Hypotension, unspecified (2) Abdominal pain Status: Acute Assessment and plan: GI assisting CT A/P without acute process Gastric emptying study was normal Small bowel follow-thru without acute cause Current Visit: Yes Qualifiers: Abdominal location: generalized Qualified Code(s): R10.84 - Generalized abdominal pain (3) Nausea & vomiting Status: Acute Assessment and plan: Improving Current Visit: Yes Hospitalist: Subjective Interval history: No acute events overnight. Patient reports having a difficult bowel movement yesterday and noted blood. Today she reports the return of her abdominal pain after eating. Exam - Constitutional Vitals: Period Temp Pulse Resp BP Sys/Cruz Pulse Ox Last 24 Hr 96.9 F-97.9 F 59-95 18-20 85-113/51-70 93-100 General appearance: normal weight - Head Head exam: Present: normocephalic, atraumatic - Eye Eye exam: Present: EOMI Pupils: Present: TAMMIE - ENT ENT exam: Present: normal exam - Neck Neck exam: Present: normal inspection - Respiratory Respiratory exam: Present: clear to auscultation bilaterally - Cardiovascular Cardiovascular exam: Present: regular rate and rhythm - GI/Abdominal GI/Abdominal exam: Present: normal bowel sounds, soft. Absent: tenderness, rebound - Extremities Exam Extremities exam: Present: normal inspection - Back Exam Back exam: Present: normal inspection - Neurological Exam Neurological exam: Present: alert, oriented X3 - Psychiatric Psychiatric exam: Present: normal affect, normal mood - Skin Skin exam: Present: warm, intact Results - Labs CBC & BMP: 06/14/17 05:38 06/15/17 05:52
[2017-06-15] MEDS ORDERED: HYDROCORTISONE 2.5% RECTAL CREAM 30 GM TUBE TOP PRN (16:46)
--- NOTE | 2017-06-15 16:51 | Gastrointestinal Progress Note ---
Assessment and Plan (1) IBS (irritable colon syndrome) Status: Acute Assessment and plan: Patient appears to have irritable bowel syndrome with an exquisite sensitivity to certain laxatives i.e. Linzess. Presently she is being underdosed with one bowel movement every 1 week, we should be able to titrate up some MiraLAX in order to produce steady bowel movements on a daily basis or twice daily basis with a gradually increasing dose. Some of the hypomotility noted in the colon should be reversed as we discontinue the patient's narcotics. The purpose for this is twofold--not just to see if we can improve her colonic motility but also to decrease upper GI hypomotility so we can see if she has gastroparesis and perhaps reverse the nausea and vomiting that she is experiencing if this is all narcotic induced. Other drugs can be used for chronic opioid induced constipation such as Relistor and Movantik as other options down the road however decreasing the narcotics circumvents the need for these medications. We will need to keep an eye on the patient to see how she responds to discontinuation of these medications while observing for potential withdrawal symptoms and her response to the combination of 145 mg of Linzess in addition to MiraLAX 1 capful twice daily. 06/14/17--The patient does have what sounds like 4-6 bowel movements per day while on the Linzess as well as the MiraLAX. We can likely discontinue the MiraLAX at this point and see if we can get her into about the 2-3 loose bowel movement per day range. I suspect this might get worse if she was back on the narcotics but as we are working her up at the present time this level of laxative use is not going to be required. I am going to order a small bowel follow-through to look and see if there is any areas of stricturing/narrowing/ fistula might be consistent with Crohn's. She seems to be doing superlatively well off of her narcotics. 06/15/17--Bowel movements today are down down to 1 on this Linzess 145 mg prior to breakfast each day. The patient did not remember that she had gotten this this morning but I verify with pharmacy who looked up the records. She seems to be doing better off of narcotics but is still concerned about advancing her diet. She seems to be tolerating them well. We talked about not starting her on new medications such as Reglan if we could avoid these, she does not have hasmukh gastric slowing. We also discussed that she had already had EGD and colonoscopy done by Dr. Robertson as recently as 2014 these were completely normal. In my opinion the diagnosis of constipation predominant IBS is correct and additional testing is not required although we have done small bowel follow- through as well as gastric emptying study this admission that proved that she does not have GI hypomotility off of the narcotics. My suggestion to the patient was to put up with some pain and eat calorically dense foods to keep her strength up, and her weight loss down. There is some secondary gain with weight loss as many people have been asking her what she "has been doing". She has tried probiotics and various other treatments although I do not believe she is tried Xifaxan 550 mg 3 times daily 2 weeks. This is incredibly expensive and not particularly helpful in my experience. Certainly, from a GI standpoint , this patient has reached her maximum benefits of hospitalization can be discharged. Current Visit: Yes (2) Generalized abdominal pain Status: Acute Assessment and plan: Likely this is a manifestation of the above IBS type picture, especially given that the patient's pain is diffuse and not localized to one particular area. Typically patients feel better once they are emptied and this is not always the case in this particular patient. There is definitely some somatization going on here, this is unlikely to respond to narcotic therapy, as this is her main complaint when you try her off the narcotics to see if we can have a clean slate to treat her bowel and hypomotility issues considering the amount of weight that she is lost since November. This is going to have to take priority over her orthopedic complaints at least in the short-term. I have explained this to the patient who promises to try and comply. We need to see with a gastric emptying study shows tomorrow and see if she gets improvement in her symptoms after the narcotics end. 06/14/17--the patient appears to be doing fairly well on just the Linzess in addition to some MiraLAX for her underlying "constipation". In truth she likely does not need the MiraLAX as she is going to the bathroom approximately 6 -8 times per day without this. The Linzess may be able to handle her IBS alone at 145 mg per day. Will discontinue the MiraLAX at this point and observe. I am going to ask for small bowel follow-through to look for evidence of narrowing fistulas that might be consistent with Crohn's disease. We will observe the patient on a solid diet. N.p.o. after midnight for the above small bowel follow-through. 06/15/17--the patient is getting by with Linzess alone. Her bowel movements have dropped down to about 1-3 per day, and she is eating her diets off of narcotics. She is having some slight rectal bleeding for which I have written her some Anusol HC cream. This is due to a large external hemorrhoid left over from constipation and her childbearing experiences. Again I did emphasize to her that the abdominal pain would not completely go away--this is the nature of IBS with bloating, but the bowel movements will be regulated and over time the Linzess will work routinely to help keep the pain down to a dull roar. Current Visit: Yes (3) Abnormal weight loss Status: Acute Current Visit: Yes (4) Nausea & vomiting Status: Acute Assessment and plan: Possibly due to upper GI hypomotility as her acidity in her stomach is being controlled with proton pump inhibitors. She has just completed a Menjivar pH monitoring study which I suspect would be normal unless she was vomiting her PPIs. Will observe her on Zofran, promethazine, and Valium to help control her anxiety (without cutting back her motility). 06/14/17--The patient's T1 half emptying time for gastric emptying study was noted to be 99 minutes which is upper ends of normal, she might benefit from low -dose Reglan if she develops worsening nausea and vomiting however would like to avoid using excessive amounts of medication this patient, we will not start anything for the present time as long she is not having nausea. Most of her complaints stem from the abdominal pain and bloating that she feels with intake of food. Again I suspect that her IBS will be well controlled with the Linzess 145 mg per day and avoidance of narcotics as her mainstay treatments. She is on Protonix 40 mg twice daily which should be adequately suppressing her stomach acid. Continue feeding a low-fat diet. 06/15/17--as mentioned above the patient's small bowel follow-through shows no gross evidence of Crohn's and a normal small bowel motility off of narcotics-- this equaled 2 hours to get the contrast of the cecum. Her bowel movements have improved as mentioned and she is not having any nausea vomiting right now on the Protonix twice daily. She does not need any further endoscopic evaluation. She is doing well in my opinion. Current Visit: Yes Gastroenterology - PN: Subj Interval history: The patient is doing adequately, her bowel movements are down to 1-3 per day now that she is off of narcotics and on a low-fat diet. She is ordering salads and we talked a little bit about increasing the caloric density to her diet. I think I am going to switch her over to a low residue, low lactose diet instead and see if we can get a few more nutrients in given her weight loss. Thus far she seems to be tolerating the diet adequately without significant nausea or vomiting. Her abdominal pain is tolerable. The small bowel follow-through was performed and shows no evidence of Crohn's/narrowing/fistulas and the small bowel transit time is completely normal at 2 hours Exam (Progress Note) - Constitutional Vitals: Period Temp Pulse Resp BP Sys/Cruz Pulse Ox Last 24 Hr 96.9 F-97.9 F 59-95 16-20 85-113/47-70 93-100 General appearance: mild distress - Head Head exam: Present: normocephalic - Eye Eye exam: Present: EOMI Pupils: Present: TAMMIE - Respiratory Respiratory exam: Present: clear to auscultation bilaterally - Cardiovascular Cardiovascular exam: Present: regular rate and rhythm - GI/Abdominal GI/Abdominal exam: Present: normal bowel sounds, tenderness (Very mild diffuse tenderness), soft - Neurological Exam Neurological exam: Present: alert, oriented X3 - Psychiatric Psychiatric exam: Present: normal affect - Skin Skin exam: Present: warm Results - Labs CBC & BMP: 06/14/17 05:38 06/15/17 05:52
[2017-06-15] MEDS ORDERED: ALUMINUM/MAGNES/SIMETH MAX STR 30 ML UDCUP PO PRN (17:55)
[2017-06-15] MEDS ORDERED: CALCIUM CARBONATE CHEW 500 MG TABLET PO PRN (17:55)
[2017-06-15] MEDS: PRAMIPEXOLE 1 MG TABLET PO SCH (21:30)
[2017-06-15] MEDS: GABAPENTIN 400 MG CAPSULE PO SCH (21:30)
[2017-06-15] MEDS: traZODone 50 MG TABLET PO SCH (21:30)
[2017-06-15] MEDS: LAMOTRIGINE 200 MG PO SCH (21:44)
[2017-06-16] MEDS: SODIUM CHLORIDE 0.9% 1,000 ML IV SCH ×5 (04:14→18:12)
[2017-06-16] MEDS: ONDANSETRON 4 MG/2 ML VIAL IV PRN ×5 (04:14→21:56)
[2017-06-16] MEDS: IPRATROPIUM 500 MCG/2.5 ML NEB RESP TX SCH ×2 (04:54→07:18)
[2017-06-16] MEDS: ONDANSETRON 4 MG TABLET PO SCH ×3 (06:26→22:59)
[2017-06-16 07:39] LABS: Basophils % 0.5 % (0.0-0.8); Eosinophils # 0.3 10*3/uL (0.0-0.87); Eosinophils % 3.2 % (0.00-10.9); Hematocrit 41.6 VOL% (35.7-47.0); Hemoglobin 14.4 GM/DL (12.0-16.0); Immature Granulocytes % 0.2 %; Immature Granulocytes Absolute 0.02 #; Lymphocytes # 2.4 10*3/uL (1.4-4.0); Lymphocytes % 28.8 % (21.3-54.2); Mean Corpuscular HGB Conc 34.6 GM/DL (32-36); Mean Corpuscular Hemoglobin 34 PG (27-34); Mean Corpuscular Volume 98.8 FL (87-102); Mean Platelet Volume 9.6 FL (9.6-12.0); Monocytes # 0.5 10*3/uL (0.11-0.8); Monocytes % 6.1 % (1.7-12.7); Neutrophils # 5.1 10*3/uL (1.4-7.4); Neutrophils % 61.2 % (38.7-73.9); Platelet Count 201 T/CUMM (130-400); Red Blood Count 4.21 MC/CUMM (3.8-5.5); Red Cell Distribution Width 13.1 % (9.3-17.3); White Blood Count 8.3 T/CUMM (4-12)
[2017-06-16 08:09] LABS: Calcium 8.6 MG/DL (8.5-10.1); Magnesium 2.2 MG/DL (1.8-2.4); Osmolality,Calculated 281.8 MOS/KG (273-304); Potassium 3.8 MMOL/L (3.5-5.1)
[2017-06-16] MEDS: DIAZEPAM 5 MG TABLET PO SCH ×2 (08:13→21:53)
[2017-06-16 09:23] LABS: Cortisol 8 AM 0.6 UG/DL (4.3-22.4)
[2017-06-16] MEDS: LINACLOTIDE 145 MCG CAPSULE PO SCH ×2 (09:24→09:42)
[2017-06-16] MEDS: BUDESONIDE/FORMOTEROL 80-4.5 INHALER 6.9 GM INH SCH ×2 (09:24→21:54)
[2017-06-16] MEDS: PANTOPRAZOLE 40 MG TABLET PO SCH ×2 (09:24→21:54)
[2017-06-16] MEDS ORDERED: COSYNTROPIN 0.25 MG VIAL IV ONE (10:58)
[2017-06-16] MEDS ORDERED: COSYNTROPIN 0.25 MG VIAL IM ONE (10:58)
[2017-06-16] MEDS: ALBUTEROL/IPRATROPIUM 3 ML NEB RESP TX SCH ×4 (11:02→22:05)
--- NOTE | 2017-06-16 11:13 | Hospitalist Progress Note ---
Assessment and Plan (1) Hypotension Status: Acute Assessment and plan: Asymptomatic Continue IV fluids Am cortisol is low at 0.6, this is very convincing of adrenal insufficiency Patient is asymptomatic with this blood pressure so will perform further testing before starting steroids (patient is concerned about taking steroids with her psych meds) Will check a cosyntropin stem test in the am CT C/P does not mention any abnormalities of her adrenals Could consider pituitary MRI tomorrow if test is abnormal plus an outpatient endocrine referral Current Visit: Yes Qualifiers: Hypotension type: unspecified hypotension type Qualified Code(s): I95.9 - Hypotension, unspecified (2) Abdominal pain Status: Acute Assessment and plan: GI assisting CT A/P without acute process Gastric emptying study was normal Small bowel follow-thru without acute cause Diagnosed with Irritable Bowel Syndrome, constipation predominant Dr. Wilson has discussed this as well as treatment options in depth with the patient She disagrees with this diagnosis and is requesting a surgery consult Current Visit: Yes Qualifiers: Abdominal location: generalized Qualified Code(s): R10.84 - Generalized abdominal pain (3) Nausea & vomiting Status: Acute Assessment and plan: Improving Current Visit: Yes Hospitalist: Subjective Interval history: No acute events overnight. Patient still with low blood pressures, especially overnight and early am. Patient with multiple complaints this morning. She states that she is worried about her low blood pressure but she also is adamant about receiving narcotic pain medications. She doesn't understand why she can't just be started on pressors so that she can receive better pain medications. Long discussion with patient about how the bigger concern is of her blood pressure and not her pain. She seems to understand this. She is also complaining of chest congestion that started this morning, she would like to have an abg performed. She also disagrees with the diagnosis of IBS, she believes that her pain is due to a hiatal hernia or adhesions. She reports that a previous doctor stressed the need for a surgery evaluation for her for these problems. She would like a surgery consult while inpatient. She reports that she needs to go outside and smoke a cigarette. I offered her a nicotine patch which she says that she will accept but that she "is still going to go outside and smoke." Exam - Constitutional Vitals: Period Temp Pulse Resp BP Sys/Cruz Pulse Ox Last 24 Hr 96.2 F-97.8 F 64-95 16-20 72-113/40-70 91-100 General appearance: normal weight - Head Head exam: Present: normocephalic, atraumatic - Eye Eye exam: Present: EOMI Pupils: Present: TAMMIE - ENT ENT exam: Present: normal exam - Neck Neck exam: Present: normal inspection - Respiratory Respiratory exam: Present: clear to auscultation bilaterally. Absent: wheezes - Cardiovascular Cardiovascular exam: Present: regular rate and rhythm - GI/Abdominal GI/Abdominal exam: Present: normal bowel sounds, tenderness, soft - Extremities Exam Extremities exam: Present: normal inspection - Back Exam Back exam: Present: normal inspection - Neurological Exam Neurological exam: Present: alert, oriented X3 - Psychiatric Psychiatric exam: Present: anxious. Absent: depressed - Skin Skin exam: Present: warm, intact Results - Labs CBC & BMP: 06/16/17 07:28 06/16/17 07:28
[2017-06-16] MEDS ORDERED: IBUPROFEN 800 MG TABLET PO ONE (12:08)
[2017-06-16] MEDS: NICOTINE 21 MG/24 HR PATCH TRANSDERM SCH (12:09)
--- NOTE | 2017-06-16 12:45 | XRay Report ---
Single view the chest. Indication: Shortness of breath. Comparison: August 04, 2015. The heart and mediastinal contours are unremarkable. The pulmonary vasculature is normal. There is no consolidation, pneumothorax, or pleural effusion. The osseous structures are unremarkable. Impression: No abnormality is seen. PROCEDURE INTERPRETED AT [facility] DEPARTMENT OF RADIOLOGY Final Report Signed by: Dr. Smiley Venegas
--- NOTE | 2017-06-16 14:36 | Gastrointestinal Progress Note ---
Assessment and Plan (1) IBS (irritable colon syndrome) Status: Acute Assessment and plan: Patient appears to have irritable bowel syndrome with an exquisite sensitivity to certain laxatives i.e. Linzess. Presently she is being underdosed with one bowel movement every 1 week, we should be able to titrate up some MiraLAX in order to produce steady bowel movements on a daily basis or twice daily basis with a gradually increasing dose. Some of the hypomotility noted in the colon should be reversed as we discontinue the patient's narcotics. The purpose for this is twofold--not just to see if we can improve her colonic motility but also to decrease upper GI hypomotility so we can see if she has gastroparesis and perhaps reverse the nausea and vomiting that she is experiencing if this is all narcotic induced. Other drugs can be used for chronic opioid induced constipation such as Relistor and Movantik as other options down the road however decreasing the narcotics circumvents the need for these medications. We will need to keep an eye on the patient to see how she responds to discontinuation of these medications while observing for potential withdrawal symptoms and her response to the combination of 145 mg of Linzess in addition to MiraLAX 1 capful twice daily. 06/14/17--The patient does have what sounds like 4-6 bowel movements per day while on the Linzess as well as the MiraLAX. We can likely discontinue the MiraLAX at this point and see if we can get her into about the 2-3 loose bowel movement per day range. I suspect this might get worse if she was back on the narcotics but as we are working her up at the present time this level of laxative use is not going to be required. I am going to order a small bowel follow-through to look and see if there is any areas of stricturing/narrowing/ fistula might be consistent with Crohn's. She seems to be doing superlatively well off of her narcotics. 06/15/17--Bowel movements today are down down to 1 on this Linzess 145 mg prior to breakfast each day. The patient did not remember that she had gotten this this morning but I verify with pharmacy who looked up the records. She seems to be doing better off of narcotics but is still concerned about advancing her diet. She seems to be tolerating them well. We talked about not starting her on new medications such as Reglan if we could avoid these, she does not have hasmukh gastric slowing. We also discussed that she had already had EGD and colonoscopy done by Dr. Robertson as recently as 2014 these were completely normal. In my opinion the diagnosis of constipation predominant IBS is correct and additional testing is not required although we have done small bowel follow- through as well as gastric emptying study this admission that proved that she does not have GI hypomotility off of the narcotics. My suggestion to the patient was to put up with some pain and eat calorically dense foods to keep her strength up, and her weight loss down. There is some secondary gain with weight loss as many people have been asking her what she "has been doing". She has tried probiotics and various other treatments although I do not believe she is tried Xifaxan 550 mg 3 times daily 2 weeks. This is incredibly expensive and not particularly helpful in my experience. Certainly, from a GI standpoint , this patient has reached her maximum benefits of hospitalization can be discharged. 06/16/17--the patient has had both upper and lower endoscopy done back in 2014 which were unremarkable, small bowel follow-through is shown no evidence of an ileus or evidence of stricturing/fistula with Crohn's, and she does not have a gastroparesis type picture with the gastric emptying study. She does have a reasonable number of bowel movements using Linzess and can titrate up or down MiraLAX as needed to produce additional bowel movements. This was explained to her. She needs to avoid narcotics entirely to help with her appetite and help with her constipation predominant irritable bowel syndrome. She is used to having narcotics given to her for orthopedic causes and may have become psychologically dependent on these. Withdrawal may be difficult for this patient but needs to be aggressively pursued. She does not need additional workup in my opinion. Please have the patient follow-up with her primary amphibious operations officer in [place], Dr. Amaya. I would encourage her to eat multiple small volume, calorically dense meals through the day and to use the MiraLAX as well as the half dose Linzess to maintain bowel flow. This will be a great deal easier off of narcotics when she finally adjusts to their absence. Would suggest discharge expeditiously once you achieve the information you need from your Cortrosyn stim tests. Thank you for this interesting consult. Current Visit: Yes (2) Generalized abdominal pain Status: Acute Assessment and plan: Likely this is a manifestation of the above IBS type picture, especially given that the patient's pain is diffuse and not localized to one particular area. Typically patients feel better once they are emptied and this is not always the case in this particular patient. There is definitely some somatization going on here, this is unlikely to respond to narcotic therapy, as this is her main complaint when you try her off the narcotics to see if we can have a clean slate to treat her bowel and hypomotility issues considering the amount of weight that she is lost since November. This is going to have to take priority over her orthopedic complaints at least in the short-term. I have explained this to the patient who promises to try and comply. We need to see with a gastric emptying study shows tomorrow and see if she gets improvement in her symptoms after the narcotics end. 06/14/17--the patient appears to be doing fairly well on just the Linzess in addition to some MiraLAX for her underlying "constipation". In truth she likely does not need the MiraLAX as she is going to the bathroom approximately 6 -8 times per day without this. The Linzess may be able to handle her IBS alone at 145 mg per day. Will discontinue the MiraLAX at this point and observe. I am going to ask for small bowel follow-through to look for evidence of narrowing fistulas that might be consistent with Crohn's disease. We will observe the patient on a solid diet. N.p.o. after midnight for the above small bowel follow-through. 06/15/17--the patient is getting by with Linzess alone. Her bowel movements have dropped down to about 1-3 per day, and she is eating her diets off of narcotics. She is having some slight rectal bleeding for which I have written her some Anusol HC cream. This is due to a large external hemorrhoid left over from constipation and her childbearing experiences. Again I did emphasize to her that the abdominal pain would not completely go away--this is the nature of IBS with bloating, but the bowel movements will be regulated and over time the Linzess will work routinely to help keep the pain down to a dull roar. 06/16/17--I agree with the workup by Dr. Kenyon Gay, and I would like to encourage this patient not to pursue narcotics in the future as these have brought about a large number of her problems. Constipation predominant IBS is not typically treated with narcotics, we need to find other modalities for the patient. She is having some problems with her hiatal hernia and reflux, for example, twice daily Protonix is a better answer than Shields. Again a more extensive workup is not going to be required in this case at least from a GI standpoint. Consider discharge when you see fit. Again, this patient will be following up with Dr. Amaya in [place] Current Visit: Yes (3) Abnormal weight loss Status: Acute Current Visit: Yes (4) Nausea & vomiting Status: Acute Assessment and plan: Possibly due to upper GI hypomotility as her acidity in her stomach is being controlled with proton pump inhibitors. She has just completed a Menjivar pH monitoring study which I suspect would be normal unless she was vomiting her PPIs. Will observe her on Zofran, promethazine, and Valium to help control her anxiety (without cutting back her motility). 06/14/17--The patient's T1 half emptying time for gastric emptying study was noted to be 99 minutes which is upper ends of normal, she might benefit from low -dose Reglan if she develops worsening nausea and vomiting however would like to avoid using excessive amounts of medication this patient, we will not start anything for the present time as long she is not having nausea. Most of her complaints stem from the abdominal pain and bloating that she feels with intake of food. Again I suspect that her IBS will be well controlled with the Linzess 145 mg per day and avoidance of narcotics as her mainstay treatments. She is on Protonix 40 mg twice daily which should be adequately suppressing her stomach acid. Continue feeding a low-fat diet. 06/15/17--as mentioned above the patient's small bowel follow-through shows no gross evidence of Crohn's and a normal small bowel motility off of narcotics-- this equaled 2 hours to get the contrast of the cecum. Her bowel movements have improved as mentioned and she is not having any nausea vomiting right now on the Protonix twice daily. She does not need any further endoscopic evaluation. She is doing well in my opinion. 06/16/17--Resolved. Current Visit: Yes Gastroenterology - PN: Subj Interval history: The patient felt well enough at this time to go out and smoke. She has not documented any further bowel movements and likely needs some additional MiraLAX on top of her half dose Linzess in order to improve her stool output. She has been continuing on a high-fiber diet. She has excellent emptying from her small bowel without gross evidence of stricturing or narrowing or ileus, and her gastric emptying study is essentially normal. She has both upper and lower endoscopies that have been felt to be normal back in 2014 and her GI workup is now complete. Exam (Progress Note) - Constitutional Vitals: Period Temp Pulse Resp BP Sys/Cruz Pulse Ox Last 24 Hr 96.2 F-97.9 F 64-113 16-20 72-113/40-70 91-100 General appearance: mild distress Exam: Patient not examined today as she was out smoking, nurses state that she is likely having some abdominal pain additionally from withdrawal symptoms but I note that she is able to eat approximately 75% of her tray, and she feels well enough to smoke outside. Dr. Del Toro has been consulted to see if there is a surgical option in treating the patient's constipation predominant irritable bowel syndrome/hiatal hernia. Results - Labs CBC & BMP: 06/16/17 07:28 06/16/17 07:28
--- NOTE | 2017-06-16 16:08 | General Surg History&Physical ---
Assessment and Plan - Time spent with patient Time spent with patient: Greater than 30 minutes (1) Abdominal pain Status: Acute Assessment and plan: The etiology of her abdominal pain is unclear. Certainly she does likely have a component of gastroesophageal reflux but as I explained to her symptoms that she describes as being so disabling are not consistent with reflux. For this reason I feel that reflux surgery probably will not relieve her chronic pain. The chronic pain that she describes seems like it came on after she became dependent on opioids. I think that this certainly could have had some negative effects on GI motility and tolerance of pain. She has had a diagnosis of irritable bowel syndrome before and certainly opioids probably are not helpful for this. I have reviewed her imaging studies and I do not see anything based on the imaging that would lead me to believe that surgery to lyse adhesions or to explore her abdomen is likely to relieve her chronic pain. I also discussed this case at length with Dr. Wilson. He does not feel that there is a role for surgery and relief of her chronic pain at this time. Current Visit: Yes Qualifiers: Abdominal location: generalized Qualified Code(s): R10.84 - Generalized abdominal pain (2) GERD with esophagitis Status: Acute Assessment and plan: This is per the patient's history. No she does have abdominal pain I think that the main pain that she is feeling is probably not related to her reflux. She does have esophagitis and is reasonable to investigate for the possibility of reflux operation to prevent progression of her esophagitis though I do not think it is likely related to her chronic abdominal pain. Current Visit: Yes History of Present Illness Chief complaint: Abdominal pain History of present illness: Ms. Daley is a 46 year old female Who for 1 year has had poorly localized abdominal pain. She describes the pain as being severe and worse between her umbilicus and her xiphoid. It is in the mid epigastric region and then she says at that point spreads all over her entire abdomen she says this is always there but much worse when she eats. She does have chronic constipation. She says that she does have some reflux symptoms occasionally but this does not feel like heartburn. This pain is not in her chest. She is tearful during the history and as "I have to do something " she is requesting that I fix her hiatal hernia. She states that she was having a workup of her hiatal hernia in [place] and underwent endoscopy which showed esophagitis. Currently they attempted to do manometry which she did not tolerate which makes me think that they were looking at possibly doing a fundoplication but I do not have any of these records. She has had multiple previous abdominal operations and most recently had what sounds like a bladder sling or vaginal mesh removed about a year ago last fall in [place]. Apparently this was complicated by some local wound infection in her right mons pubis. She states that she has been on chronic narcotics with pain management for the last year or so and is on MS Contin. Her history of abdominal pain probably started months after she was on narcotics. She has been taking the narcotics for chronic neck and back pain. Home Medications Medication Instructions Recorded Confirmed Type Ondansetron Tab [Zofran Tab] 4 mg PO Q8HR 02/07/15 06/12/17 History Pantoprazole Tab [Protonix Tab] 40 mg PO BID 02/07/15 06/12/17 History Cetirizine Tab [ZyrTEC TAB] 10 mg PO DAILY 07/02/15 06/12/17 History Diazepam Tab [Valium Tab] 5 mg PO BID 07/02/15 06/12/17 History Gabapentin Cap/Tab [Neurontin 800 mg PO BEDTIME 07/02/15 06/12/17 History Cap/Tab] Tiotropium Inhalation [Spiriva 18 mcg INH DAILY 07/02/15 06/12/17 History Handihaler] lamoTRIgine [Lamictal Xr] 200 mg PO BEDTIME 07/02/15 06/12/17 History Budesonide/Formoterol 80-4.5 2 puff INH BID 06/12/17 06/12/17 History [Symbicort 80-4.5] Linaclotide [Linzess] 145 mcg PO AC BREAKFAST 06/12/17 06/12/17 History Morphine ER Tab [Ms Contin] 15 mg PO BID 06/12/17 06/12/17 History Oxycodone HCl 15 mg PO TID 06/12/17 06/12/17 History Pramipexole [Mirapex] 1 mg PO BEDTIME 06/12/17 06/12/17 History Trazodone HCl 50 mg PO BEDTIME 06/12/17 06/12/17 History Allergies Allergy/AdvReac Type Severity Reaction Status Date / Time phenazopyridine Allergy RASH Verified 07/02/15 13:00 [From Pyridium] venom-honey bee Allergy ANAPHYLAXIS Verified 07/02/15 13:00 [bee venom (honey bee)] eletriptan [From Relpax] AdvReac Palpitation Verified 06/12/17 20:11 s metronidazole [From Flagyl] AdvReac Vomiting Verified 06/15/17 07:39 nitrofurantoin AdvReac Vomiting Verified 06/15/17 07:39 [From Macrobid] NSAIDS (Non-Steroidal AdvReac Unknown/Unable Verified 07/02/15 13:00 Anti-Inflamma to obtain pseudoephedrine AdvReac Hypotension Verified 06/15/17 07:39 sumatriptan [From Imitrex] AdvReac Chest Pain Verified 06/15/17 07:39 Medical,Surgical,& Family Hx - Medical History Psychological: History of: Anxiety Disorders, Bipolar Disorder Neurology: History of: Migraine Respiratory: History of: COPD Gastrointestinal: History of: GERD, GI Problems (IBS) Musculoskeletal: History of: Back/Neck Problems (chronic back pain), Musculoskeletal Problems (Restless leg syndrome) Hematology: History of: Bleeding Problems (VWD) - Surgical History Abdominal Surgeries: Surgical HX of: Cholecystectomy (01/2014), Colonoscopy (2014), EGD Patient denies: Abdominal Surgery Comment Only: Hernia Repair (pt reports she has hitial hernia) Reproductive Surgeries: Surgical HX of;: Hysterectomy (2010), Tubal Ligation - Family History Family History: Reports;: Family Cancer (Mother: breast and cervical CA; Maternal grandmother: breast CA), Family Diabetes (maternal grandfather), Family Hypertension (maternal grandmother) - Social History Smoking Status: Current every day smoker Frequency of Alcohol Use: None Type of Drug Use: None Exam - Constitutional Vitals: Period Temp Pulse Resp BP Sys/Cruz Pulse Ox Last 24 Hr 96.2 F-97.9 F 64-113 16-20 72-101/40-65 91-99 General appearance: no acute distress - Head Head exam: Present: normocephalic - Eye Eye exam: Present: EOMI. Absent: scleral icterus Pupils: Present: TAMMIE - ENT Mouth exam: Present: normal voice - Neck Neck exam: Present: trachea midline. Absent: tenderness, thyromegaly - Respiratory Respiratory exam: Present: clear to auscultation bilaterally. Absent: accessory muscle use - Cardiovascular Cardiovascular exam: Present: RRR - GI/Abdominal GI/Abdominal exam: Present: soft. Absent: distended, guarding, hernia, mass, tenderness, rebound - Extremities Exam Extremities exam: Present: full ROM. Absent: edema - Back Exam Back exam: Present: normal inspection - Neurological Exam Neurological exam: Present: alert, oriented X3. Absent: motor sensory deficit Speech: Present: normal - Skin Skin exam: Present: normal color - Constitutional Constitutional: Present: weight loss. Absent: anorexia, chills, fever(s) - EENT Nose, mouth and throat: Absent: hoarseness - Cardiovascular Cardiovascular: Present: dyspnea on exertion. Absent: chest pain at rest, chest pain with activity, dyspnea - Respiratory Respiratory: Present: dyspnea on exertion. Absent: cough, dyspnea, hemoptysis - Gastrointestinal Gastrointestinal: Present: abdominal pain, bloating, constipation, cramping, hematochezia, nausea, vomiting. Absent: hematemesis, melena, jaundice - Genitourinary Genitourinary: Present: urinary incontinence. Absent: hematuria - Musculoskeletal Musculoskeletal: Present: back pain - Neurological Neurological: Absent: focal weakness, syncope - Endocrine Endocrine: Absent: polyuria Hematologic/Lymphatic: Present: easy bleeding. Absent: easy bruising Results - Labs CBC & BMP: 06/16/17 07:28 06/16/17 07:28 Lab Results: I have reviewed the past 24 hour labs - Diagnostic Findings Procedure: CT Abdomen and Pelvis: image reviewed by me, report reviewed by me, X -ray: report reviewed by me (Normal GI series)
[2017-06-16] MEDS: POLYETHYLENE GLYCOL POWDER 17 GM PACK PO SCH (21:50)
[2017-06-16] MEDS: traZODone 50 MG TABLET PO SCH (21:51)
[2017-06-16] MEDS: LAMOTRIGINE 200 MG PO SCH (21:51)
[2017-06-16] MEDS: PRAMIPEXOLE 1 MG TABLET PO SCH (21:52)
[2017-06-16] MEDS: GABAPENTIN 400 MG CAPSULE PO SCH (21:52)
[2017-06-17] MEDS: ALBUTEROL/IPRATROPIUM 3 ML NEB RESP TX SCH ×3 (02:56→10:30)
[2017-06-17] MEDS: SODIUM CHLORIDE 0.9% 1,000 ML IV SCH (04:03)
[2017-06-17] MEDS: ONDANSETRON 4 MG/2 ML VIAL IV PRN (04:05)
[2017-06-17] MEDS: ACETAMINOPHEN 325 MG TABLET PO PRN (05:23)
--- NOTE | 2017-06-17 06:16 | Event Note ---
Nursing called and stated that Ms. Daley was crying, holding her right side and stating that "something's busted on my right side." The nurse gave her tylenol but she continues to complain very loudly. Her most recent vital signs at 04:00 today were temp 98.7, HR 104, and BP 105/65. She has no fever or vomiting. Initially Toradol was ordered for pain so that the plan by GI to stop narcotics due to related constipation would not be compromised. However, her daughters stated that she could not take NSAIDS due to von Willebrand's disease. Upon further investigation, this was listed on her chart, so this verbal order was cancelled. CT abdomen obtained previously during this stay showed there was a right renal stone. An abdominal US was ordered to investigate for the movement of the right renal stone into the ureter or any other acute process. Will consider additional pain medications based on the impression of the US.
[2017-06-17] MEDS ORDERED: COSYNTROPIN 0.25 MG VIAL IM ONE (08:00)
--- NOTE | 2017-06-17 08:01 | Hospitalist Progress Note ---
Assessment and Plan (1) Chronic respiratory failure Status: Acute Assessment and plan: She claims to have a history of chronic respiratory failure with chronic hypoxemia. She underwent a chest x-ray yesterday demonstrating no acute abnormalities. Current Visit: Yes Qualifiers: Respiratory failure complication: hypoxia Qualified Code(s): J96.11 - Chronic respiratory failure with hypoxia (2) Abdominal pain Status: Acute Assessment and plan: She continues to complain of severe abdominal pain. Evaluation to date, including consultations with gastroenterology and surgery, his disclosed no acute abdomen. His the impression of gastroenterology that she has irritable bowel syndrome with predominant constipation, exacerbated by chronic opioid use. Current Visit: Yes Qualifiers: Abdominal location: generalized Qualified Code(s): R10.84 - Generalized abdominal pain (3) Opioid dependence Status: Acute Assessment and plan: She continues to request opiate narcotics. I advised her that I will not so prescribe those medications for her in the hospital without any acute reason to do so. Current Visit: Yes (4) IBS (irritable colon syndrome) Status: Acute Assessment and plan: See above. Current Visit: Yes Qualifiers: Irritable bowel syndrome type: with constipation (5) Adrenal insufficiency Status: Acute Assessment and plan: She is presently undergoing evaluation for possible adrenal insufficiency. Current Visit: Yes Hospitalist: Subjective Interval history: The notes of gastroenterology and surgery are noted. She claims to be continued to have persistent severe abdominal pain for which she requests narcotics. She claims to have persistent respiratory failure. She has been documented to have hypoxemia. A chest x-ray performed yesterday demonstrated no abnormalities. She is scheduled to undergo an abdominal ultrasound today. I have advised her that if her abdominal ultrasound is normal, she will be discharged for outpatient follow-up. Exam - Constitutional Vitals: Period Temp Pulse Resp BP Sys/Cruz Pulse Ox Last 24 Hr 97.0 F-98.7 F 76-113 16-22 80-105/51-66 90-100 General appearance: no acute distress - Neck Neck exam: Present: normal inspection - Respiratory Respiratory exam: Present: clear to auscultation bilaterally - Cardiovascular Cardiovascular exam: Present: regular rate and rhythm - GI/Abdominal GI/Abdominal exam: Present: normal bowel sounds, soft, other (Nontender with no palpable masses or hepatosplenomegaly.) - Extremities Exam Extremities exam: Present: normal inspection - Neurological Exam Neurological exam: Present: alert, oriented X3 - Psychiatric Psychiatric exam: Present: other (Angry and hostile) - Skin Skin exam: Present: normal color, warm, intact Results - Labs CBC & BMP: 06/16/17 07:28 06/16/17 07:28
[2017-06-17] MEDS: DIAZEPAM 5 MG TABLET PO SCH (08:15)
[2017-06-17 08:28] VITALS: BP 113/69
[2017-06-17] MEDS: ONDANSETRON 4 MG TABLET PO SCH (08:59)
[2017-06-17] MEDS: NICOTINE 21 MG/24 HR PATCH TRANSDERM SCH ×2 (09:40→09:41)
[2017-06-17] MEDS: POLYETHYLENE GLYCOL POWDER 17 GM PACK PO SCH ×2 (09:40→09:41)
[2017-06-17] MEDS: PANTOPRAZOLE 40 MG TABLET PO SCH (09:41)
[2017-06-17] MEDS: BUDESONIDE/FORMOTEROL 80-4.5 INHALER 6.9 GM INH SCH (09:41)
[2017-06-17] MEDS: LINACLOTIDE 145 MCG CAPSULE PO SCH (09:41)
[2017-06-17 09:44] LABS: ABG Base Excess 2.2 MMOL/L (-2.5-2.5); ABG HCO3 26.3 MMOL/L (20-26); ABG Oxygen Saturation 97.4 % (95-100); ABG PCO2 47.3 MM HG (35-48); ABG PO2 90.5 MM HG (80-95); ABG TCO2 24.8 MMOL/L (23-27)
--- NOTE | 2017-06-17 09:56 | Ultrasound Report ---
Abdomen ultrasound complete. Indication: Right lower abdominal pain. Renal colic. No prior study. Correlated study, previous CT of the abdomen and pelvis from June 13, 2017. The liver is normal in size and density. It within the right lobe of the liver, and there is a 9 x 11 mm cyst with mildly irregular nicole. There is no intrahepatic biliary ductal dilatation. The gallbladder has been removed. The common duct measures 8.8 mm. The IVC is patent. There is no aneurysmal dilatation of the abdominal aorta. No pancreatic abnormality is seen. The spleen is normal in size. The kidneys are normal in size, location, and contour. No hydronephrosis. The small nonobstructing right renal calculus seen on CT is too small to be identified on ultrasound. Impression: 1. There is a small cyst seen within the right lobe of the liver. 2. The common bile duct is mildly prominent at 8.8 mm which could be related to the postcholecystectomy state. The Ultrasound images were captured and stored. PROCEDURE INTERPRETED AT [facility] DEPARTMENT OF RADIOLOGY Final Report Signed by: Dr. Smiley Venegas
--- NOTE | 2017-06-17 10:01 | Discharge Summary ---
Hospital Course - Hospital Course Hospital Course: Patient was admitted to the hospital with multiple complaints most of which were related to her abdomen. She was seen in consultation by gastroenterology and surgery. Evaluation demonstrated her to have a hiatus hernia which was not felt to be the cause of her abdominal pain and irritable bowel syndrome. It was impression of gastroenterology that her irritable bowel syndrome was exacerbated by her chronic opiate abuse. She stated that she had a previous history of chronic obstructive pulmonary disease due to cigarette smoking. She remained throughout her hospitalization extremely uncooperative and hostile to the physicians and nurses caring for her. She resisted her discharge despite the fact that she was clinically stable. Diagnosis - Discharge Diagnosis (1) Chronic respiratory failure Status: Chronic (2) Abdominal pain Status: Chronic (3) Opioid dependence Status: Chronic (4) IBS (irritable colon syndrome) Status: Chronic (5) Adrenal insufficiency Status: Resolved Discharge Plan - Discharge Data Condition at Discharge: Stable Discharge Diet: advance to your usual diet Activity: resume usual activities as tolerated - Discharge Medications Continue Ondansetron Tab [Zofran Tab] 4 mg PO Q8HR Pantoprazole Tab [Protonix Tab] 40 mg PO BID Gabapentin Cap/Tab [Neurontin Cap/Tab] 800 mg PO BEDTIME Cetirizine Tab [ZyrTEC Tab] 10 mg PO DAILY lamoTRIgine [Lamictal XR Tab] 200 mg PO BEDTIME Diazepam Tab [Valium Tab] 5 mg PO BID Tiotropium Inhalation [Spiriva Handihaler] 18 mcg INH DAILY Trazodone HCl 50 mg PO BEDTIME Linaclotide [Linzess] 145 mcg PO AC BREAKFAST Oxycodone HCl 15 mg PO TID Budesonide/Formoterol 80-4.5 [Symbicort 80-4.5] 2 puff INH BID Morphine ER Tab [Ms Contin] 15 mg PO BID Pramipexole [Mirapex] 1 mg PO BEDTIME - Follow Up or Referral - Forms/Instructions Exam - Constitutional Vitals: Period Temp Pulse Resp BP Sys/Cruz Pulse Ox Last 24 Hr 97.0 F-98.7 F 76-113 16-22 83-113/51-69 90-100 General appearance: no acute distress - Head Head exam: Present: normal inspection - Neck Neck exam: Present: normal inspection - Respiratory Respiratory exam: Present: clear to auscultation bilaterally - Cardiovascular Cardiovascular exam: Present: regular rate and rhythm - GI/Abdominal GI/Abdominal exam: Present: normal bowel sounds, soft, other (Nontender with no palpable masses or hepatosplenomegaly.) - Extremities Exam Extremities exam: Present: normal inspection - Neurological Exam Neurological exam: Present: alert, oriented X3 - Psychiatric Psychiatric exam: Present: other (Angry and hostile.) - Skin Skin exam: Present: normal color, warm, intact Discharge Results Procedures and tests throughout hospitalization: Pending Orders 06/17/17 04:45 Cortrosyn Stimulation IN AM Labs on day of discharge: Labs from last 24 hours 06/17/17 06/17/17 09:30 04:45 ABG pH 7.380 ABG pCO2 47.3 ABG pO2 90.5 ABG HCO3 26.3 H ABG Total CO2 24.8 ABG O2 Saturation 97.4 ABG Base Excess 2.2 Cortisol Response DS: Provider Date of admission: 06/13/17 03:13 Primary care physician: . No PCP Attending physician on admission: Brendan Bejarano MD Consults: 06/16/17 10:48 Consult to Physician [CONS] Routine Comment: patient request,believes that abd pain due to rc Consulting Provider: Edgard Del Toro III. Person Notified: [email or web address] Date Notified: 06/16/17 Time Notified: 11:02 Discharging clinician: Parrish Burch
== END 2017-06-17 10:59 | disposition home or self-care (01) | DRG 392 ==
LOC: N.ED 19:13 → N.EDINP 06-13 03:12 → SUATTDRO 06-13 03:12 → N.2E 06-13 04:41
PROVIDERS: ADMIT Family Medicine